=== PATIENT | female | born 1985 | race Caucasian/White ===

== ENCOUNTER 2016-09-21 10:18 | Inpatient (IN) | payer OTHER ==
[2016-09-21] MEDS ORDERED: ONDANSETRON 4 MG/2 ML VIAL IVP PRN (10:37)
[2016-09-21] MEDS ORDERED: CALCIUM GLUCONATE 1000 MG/10 ML VIAL IVP PRN (10:37)
[2016-09-21] MEDS ORDERED: SODIUM CHLORIDE FLUSH 0.9% 10 ML SYRINGE IVP ONE (11:23)
[2016-09-21] MEDS ORDERED: PENICILLIN G POTASSIUM 5,000,000 UNIT in SODIUM CHLORIDE 0.9% MINIBAG 100 ML IV ONE (11:30)
[2016-09-21] MEDS: OXYTOCIN/LACTATED RINGERS 250 ML IV SCH (12:00)
[2016-09-21] MEDS: LACTATED RINGERS 1,000 ML IV SCH ×2 (12:12→21:41)
[2016-09-21] MEDS: MAGNESIUM SULFATE 2 GRAM 50 ML IV SCH (13:51)
[2016-09-21] MEDS: MAGNESIUM SULFATE 40 GM in LACTATED RINGERS 420 ML IV SCH (13:52)
[2016-09-21] MEDS: ACETAMINOPHEN 325 MG TABLET PO SCH (14:40)
[2016-09-21] MEDS ORDERED: PENICILLIN G POTASSIUM 2,500,000 UNIT in SODIUM CHLORIDE 0.9% 100ML 100 ML IV SCH (15:00)
[2016-09-21] MEDS: PENICILLIN G POTASSIUM 2,500,000 UNIT in SODIUM CHLORIDE 0.9% 100ML 100 ML IV SCH ×2 (17:19→21:01)
[2016-09-21] MEDS ORDERED: ZOLPIDEM 5 MG TABLET PO PRN (19:41)
[2016-09-21] MEDS: CALCIUM CARBONATE CHEW 500 MG TABLET PO PRN (23:10)
[2016-09-22] MEDS: MAGNESIUM SULFATE 2 GRAM 50 ML IV SCH (08:17)
[2016-09-22] MEDS: LABETALOL 100 MG TABLET PO SCH ×3 (08:18→21:13)
[2016-09-22] MEDS: ACETAMINOPHEN 325 MG TABLET PO SCH ×4 (08:18→18:33)
[2016-09-22] MEDS: PENICILLIN G POTASSIUM 2,500,000 UNIT in SODIUM CHLORIDE 0.9% 100ML 100 ML IV SCH ×8 (08:20→22:36)
[2016-09-22] MEDS: LACTATED RINGERS 1,000 ML IV SCH ×3 (08:20→23:18)
[2016-09-22] MEDS: OXYTOCIN/LACTATED RINGERS 250 ML IV SCH (09:40)
[2016-09-22] MEDS: MAGNESIUM SULFATE 40 GM in LACTATED RINGERS 420 ML IV SCH (10:30)
[2016-09-22] MEDS ORDERED: SODIUM CHLORIDE FLUSH 0.9% 10 ML SYRINGE IVP ONE (17:27)
[2016-09-22] MEDS: CALCIUM CARBONATE CHEW 500 MG TABLET PO PRN (22:36)
[2016-09-23] MEDS: PENICILLIN G POTASSIUM 2,500,000 UNIT in SODIUM CHLORIDE 0.9% 100ML 100 ML IV SCH ×3 (03:02→12:20)
[2016-09-23] MEDS: ACETAMINOPHEN 325 MG TABLET PO SCH ×4 (03:03→13:22)
[2016-09-23] MEDS: MAGNESIUM SULFATE 40 GM in LACTATED RINGERS 420 ML IV SCH (05:15)
[2016-09-23] MEDS ORDERED: SODIUM CHLORIDE FLUSH 0.9% 10 ML SYRINGE IVP ONE (09:20)
[2016-09-23] MEDS: LABETALOL 100 MG TABLET PO SCH (09:29)
[2016-09-23] MEDS: OXYTOCIN/LACTATED RINGERS 250 ML IV SCH (09:29)
[2016-09-23] MEDS: LACTATED RINGERS 1,000 ML IV SCH (12:02)
== END 2016-09-23 18:20 | disposition home or self-care (01) | DRG 781 ==
PROC: 3E033VJ Introduction of Other Hormone into Peripheral Vein, Percutaneous Approach (ICD-10-PCS; principal; 2016-09-21)
PROC: 0U7C7ZZ Dilation of Cervix, Via Natural or Artificial Opening (ICD-10-PCS; 2016-09-22)
DX: O14.93 Unspecified pre-eclampsia, third trimester (principal); O99.820 Streptococcus B carrier state complicating pregnancy; O61.1 Failed instrumental induction of labor; Z3A.38 38 weeks gestation of pregnancy

== ENCOUNTER 2016-09-25 12:00 | Outpatient (CLI) | payer OTHER ==
[2016-09-26] MEDS ORDERED: OXYTOCIN/LACTATED RINGERS 250 ML IV SCH (07:00)
== END 2016-09-25 13:00 | disposition home or self-care (01) ==
DX: O11.3 Pre-existing hypertension with pre-eclampsia, third trimester (principal); Z3A.39 39 weeks gestation of pregnancy

== ENCOUNTER 2016-09-26 10:15 | Inpatient (IN) | payer OTHER ==
[2016-09-25] MEDS: ACETAMINOPHEN 325 MG TABLET PO PRN (21:08)
[2016-09-25] MEDS: LABETALOL 100 MG TABLET PO SCH (21:08)
[2016-09-26] MEDS: LABETALOL 100 MG TABLET PO SCH ×2 (08:58→20:54)
[~2016-09-26 10:15] MED LIST: DINOPROSTONE 10 MG SUPP VG SCH; OXYTOCIN/LACTATED RINGERS 250 ML IV SCH; PENICILLIN G POTASSIUM 2,500,000 UNIT in SODIUM CHLORIDE 0.9% 100ML 100 ML IV SCH; PENICILLIN G POTASSIUM 5,000,000 UNIT in SODIUM CHLORIDE 0.9% MINIBAG 100 ML IV SCH; SODIUM CHLORIDE FLUSH 0.9% 10 ML SYRINGE IVP PRN; ZOLPIDEM 5 MG TABLET PO PRN; fentaNYL 100 MCG/2 ML VIAL IVP PRN
[2016-09-26] MEDS ORDERED: SUFENTA/BUPIV 0.4 MCG/0.0625% 150 ML EP ONE ×2 (11:10→20:11)
[2016-09-26] MEDS: LACTATED RINGERS 1,000 ML IV SCH ×2 (12:15→23:04)
[2016-09-26] MEDS: PENICILLIN G POTASSIUM 2,500,000 UNIT in SODIUM CHLORIDE 0.9% 100ML 100 ML IV SCH ×3 (13:05→20:49)
[2016-09-26] MEDS: ONDANSETRON 4 MG/2 ML VIAL IVP PRN (21:16)
[2016-09-27] MEDS: PENICILLIN G POTASSIUM 2,500,000 UNIT in SODIUM CHLORIDE 0.9% 100ML 100 ML IV SCH ×2 (00:57→04:55)
[2016-09-27] MEDS: ONDANSETRON 4 MG/2 ML VIAL IVP PRN (02:58)
[2016-09-27] MEDS ORDERED: ROPIVACAINE 0.2% PF 20 ML AMPULE SUBQ ONE (03:00)
[2016-09-27] MEDS: LACTATED RINGERS 1,000 ML IV SCH (05:01)
[2016-09-27] MEDS: OXYTOCIN/LACTATED RINGERS 250 ML IV SCH (05:26)
[2016-09-27] MEDS ORDERED: SUFENTA/BUPIV 0.4 MCG/0.0625% 150 ML EP ONE (05:58)
[2016-09-27] MEDS ORDERED: AMPICILLIN 2 GM in SODIUM CHLORIDE 0.9% MINIBAG 100 ML IV SCH (06:00)
[2016-09-27] MEDS ORDERED: METHYLERGONOVINE 0.2 MG/ML AMP ONE (07:00)
[2016-09-27] MEDS ORDERED: CARBOPROST TROMETHAMINE 250 MCG/ML AMP IM ONE (07:00)
[2016-09-27] MEDS ORDERED: LIDOCAINE 1% 50 ML MDV ONE (07:44)
[2016-09-27] MEDS ORDERED: HYDROCORTISONE/PRAMOXINE 10 GM PR PRN (08:35)
[2016-09-27] MEDS ORDERED: OXYTOCIN/LACTATED RINGERS 250 ML IV ONE (08:35)
[2016-09-27] MEDS ORDERED: SIMETHICONE CHEW 80 MG TABLET PO PRN (08:35)
[2016-09-27] MEDS ORDERED: HYDROcod/ACETAM 5/325 MG TABLET PO PRN (08:35)
[2016-09-27] MEDS ORDERED: MAGNESIUM HYDROXIDE 2,400 MG/30 ML UDC PO PRN (08:35)
[2016-09-27] MEDS ORDERED: WITCH HAZEL/GLYCERIN 1 EACH MED..PAD TOP PRN (08:35)
[2016-09-27] MEDS: IBUPROFEN 800 MG TABLET PO SCH ×2 (09:27→15:34)
[2016-09-27] MEDS: FUROSEMIDE 20 MG TABLET PO PRN ×2 (09:27→13:31)
[2016-09-27] MEDS: LABETALOL 100 MG TABLET PO SCH ×2 (09:27→21:36)
[2016-09-27] MEDS: DOCUSATE SODIUM 100 MG CAPSULE PO SCH ×2 (09:27→21:37)
[2016-09-27] MEDS: SODIUM CHLORIDE FLUSH 0.9% 10 ML SYRINGE IVP SCH ×2 (14:24→14:28)
[2016-09-27] MEDS: ACETAMINOPHEN 325 MG TABLET PO PRN (19:36)
[2016-09-28] MEDS: IBUPROFEN 800 MG TABLET PO SCH ×4 (04:52→18:22)
[2016-09-28] MEDS: SODIUM CHLORIDE FLUSH 0.9% 10 ML SYRINGE IVP SCH ×7 (04:52→23:53)
[2016-09-28] MEDS: ACETAMINOPHEN 325 MG TABLET PO PRN ×3 (04:53→18:22)
[2016-09-28] MEDS: DOCUSATE SODIUM 100 MG CAPSULE PO SCH ×2 (09:04→20:53)
[2016-09-28] MEDS: LABETALOL 100 MG TABLET PO SCH ×2 (09:04→20:53)
[2016-09-28] MEDS: FUROSEMIDE 20 MG TABLET PO PRN ×2 (12:01→16:09)
[2016-09-28] MEDS: LACTATED RINGERS 1,000 ML IV SCH ×2 (23:51→23:52)
[2016-09-28] MEDS: OXYTOCIN/LACTATED RINGERS 250 ML IV SCH (23:52)
[2016-09-29] MEDS: ACETAMINOPHEN 325 MG TABLET PO PRN ×3 (00:24→13:06)
[2016-09-29] MEDS: IBUPROFEN 800 MG TABLET PO SCH ×3 (00:24→13:05)
[2016-09-29] MEDS: LACTATED RINGERS 1,000 ML IV SCH ×3 (01:58→07:49)
[2016-09-29] MEDS: SODIUM CHLORIDE FLUSH 0.9% 10 ML SYRINGE IVP SCH ×2 (01:58→02:00)
[2016-09-29] MEDS: OXYTOCIN/LACTATED RINGERS 250 ML IV SCH (07:49)
[2016-09-29] MEDS: DOCUSATE SODIUM 100 MG CAPSULE PO SCH (09:09)
[2016-09-29] MEDS: FUROSEMIDE 20 MG TABLET PO PRN (09:09)
[2016-09-29] MEDS: LABETALOL 100 MG TABLET PO SCH (09:09)
== END 2016-09-29 14:25 | disposition home or self-care (01) | DRG 775 ==
PROC: 3E0P7GC Introduction of Other Therapeutic Substance into Female Reproductive, Via Natural or Artificial Opening (ICD-10-PCS; 2016-09-25)
PROC: 10907ZC Drainage of Amniotic Fluid, Therapeutic from Products of Conception, Via Natural or Artificial Opening (ICD-10-PCS; 2016-09-26)
PROC: 0KQM0ZZ Repair Perineum Muscle, Open Approach (ICD-10-PCS; principal; 2016-09-27)
PROC: 10D07Z6 Extraction of Products of Conception, Vacuum, Via Natural or Artificial Opening (ICD-10-PCS; principal; 2016-09-27)
DX: O14.94 Unspecified pre-eclampsia, complicating childbirth (principal); O99.824 Streptococcus B carrier state complicating childbirth; O75.81 Maternal exhaustion complicating labor and delivery; O63.1 Prolonged second stage (of labor); O76 Abnormality in fetal heart rate and rhythm complicating labor and delivery; O62.2 Other uterine inertia; O70.1 Second degree perineal laceration during delivery; Z3A.39 39 weeks gestation of pregnancy; Z37.0 Single live birth